=== PATIENT | male | born 1955 | race Caucasian/White ===

== ENCOUNTER 2022-12-25 18:26 | Emergency (ER) | payer BC, MEDICARE ==
[2022-12-25] MEDS ORDERED: Sodium Chloride 0.9% 10 ML Syringe FLUSH PRN (18:48)
[2022-12-25] MEDS: LORazepam 2 MG/ML SDV IVPUSH ONE (18:57)
[2022-12-25] MEDS: Albuterol/Ipratropium 3.0-0.5 MG/3 ML Neb Soln NEB ONE (18:58)
[2022-12-25 19:15] LABS: PTT,PARTIAL THROMBOPLSTIN TIME 30.1 SEC (23.6-33.6)
[2022-12-25 19:21] LABS: CHLORIDE,CL 103 mmol/L (98-107); SODIUM,NA 141 mmol/L (136-145)
[2022-12-25 19:22] LABS: ANION GAP 17.1 mmol/L (5-15); ESTIMATED GFR 74 mL/min (>=60)
[2022-12-25 19:32] LABS: CORONAVIRUS COVID-19 NAA NEGATIVE (NEGATIVE); RESPIRATORY SYNCYTIAL VIR NAA NEGATIVE (NEGATIVE)
[2022-12-25] MEDS: methylPREDNISolone Sodium Succinate 125 MG/2 ML SDV IV ONE (20:07)
[2022-12-25] MEDS: Take Home: Albuterol 18 GM Inhaler, 1 Inhaler Pack INH PRN (20:07)
== END 2022-12-25 20:30 | disposition home or self-care (01) ==
LOC: VM.ED 18:26
DX: F41.9 Anxiety disorder, unspecified (principal); R06.00 Dyspnea, unspecified; E78.00 Pure hypercholesterolemia, unspecified; E66.9 Obesity, unspecified; Z68.29 Body mass index [BMI] 29.0-29.9, adult; Z91.018 Allergy to other foods; Z88.8 Allergy status to other drugs, medicaments and biological substances; Z79.82 Long term (current) use of aspirin; Z79.899 Other long term (current) drug therapy; Z20.822 Contact with and (suspected) exposure to COVID-19
CPT/HCPCS: 0241U; 71045; 80053; 80307; 83605; 83735; 83880; 84100; 84443; 84484; 85025; 85610; 85730; 86140; 93005; 93010; 94640; 96374; 96375; 99284; 99285-25; A9270-GY; J2060; J2930; J7620-GY